=== PATIENT | male | born 1960 | race Caucasian/White ===

== ENCOUNTER 2017-07-03 08:53 | Outpatient (CLI) ==
[2014-02-08 21:12] VITALS: BMI 28.8
== END 2017-07-03 08:54 | disposition short-term general hospital (02) ==
LOC: AMBL 08:53
PROVIDERS: ATTEND Internal Medicine
DX: R07.9 Chest pain, unspecified (principal)

== ENCOUNTER 2017-07-26 12:40 | Outpatient (RCR) ==
[2017-07-26 13:23] VITALS: TEMP 98.6; BMI 28.4
[2017-08-11 08:54] VITALS: BP 126/52
== END 2017-08-12 ==
LOC: CAR.REHAB 12:40
PROVIDERS: ATTEND Clinical Nurse Specialist
DX: Z95.5 Presence of coronary angioplasty implant and graft (principal)
CPT/HCPCS: 93798

== ENCOUNTER 2017-08-14 07:52 | Outpatient (RCR) ==
[2017-09-11 09:18] VITALS: BP 110/52
== END 2017-09-11 23:59 ==
LOC: CAR.REHAB 07:52
PROVIDERS: ATTEND Clinical Nurse Specialist
DX: Z95.5 Presence of coronary angioplasty implant and graft (principal)
CPT/HCPCS: 93798

== ENCOUNTER 2017-09-12 06:42 | Outpatient (RCR) ==
[2017-09-29 09:08] VITALS: BP 134/58
== END 2017-09-29 09:00 | disposition home or self-care (01) ==
LOC: CAR.REHAB 06:42
PROVIDERS: ATTEND Clinical Nurse Specialist
DX: Z95.5 Presence of coronary angioplasty implant and graft (principal)
CPT/HCPCS: 93798

== ENCOUNTER 2017-10-10 07:59 | Outpatient (RCR) ==
[2017-10-12 08:54] VITALS: BP 130/68
== END 2017-10-12 23:59 ==
LOC: CAR.REHAB 07:59
PROVIDERS: ATTEND Clinical Nurse Specialist
DX: Z95.5 Presence of coronary angioplasty implant and graft (principal)
CPT/HCPCS: 93797

== ENCOUNTER 2017-10-13 06:44 | Outpatient (RCR) ==
[2017-11-10 08:46] VITALS: BP 134/58
== END 2017-11-11 23:59 ==
LOC: CAR.REHAB 06:44
PROVIDERS: ATTEND Clinical Nurse Specialist
DX: Z95.5 Presence of coronary angioplasty implant and graft (principal)
CPT/HCPCS: 93797

== ENCOUNTER 2017-11-13 06:41 | Outpatient (RCR) ==
[2017-12-12 09:00] VITALS: BP 142/52
== END 2017-12-12 23:59 ==
LOC: CAR.REHAB 06:41
PROVIDERS: ATTEND Clinical Nurse Specialist
DX: Z95.5 Presence of coronary angioplasty implant and graft (principal)
CPT/HCPCS: 93797

== ENCOUNTER 2017-12-13 06:42 | Outpatient (RCR) ==
[2018-01-05 09:01] VITALS: BP 124/58
== END 2018-01-12 23:59 ==
LOC: CAR.REHAB 06:42
PROVIDERS: ATTEND Clinical Nurse Specialist
DX: Z95.5 Presence of coronary angioplasty implant and graft (principal)
CPT/HCPCS: 93797

== ENCOUNTER 2018-01-16 06:46 | Outpatient (RCR) | END 2018-01-30 08:28 | disposition home or self-care (01) | LOC: CAR.REHAB 06:46 | PROVIDERS: ATTEND Clinical Nurse Specialist | DX: Z95.5 Presence of coronary angioplasty implant and graft (principal) ==